=== PATIENT | female | born 1930 | race Caucasian/White ===

== ENCOUNTER 2016-12-07 20:00 | Inpatient (IN) | payer MEDICARE, OTHER ==
[~2016-12-07] VITALS: Ht 157.5 cm; Wt 49.1 kg
[2016-12-07 20:00] VITALS: BP 164/66; PULSE 67; RESP 18; TEMP 98.1; O2SAT 98
[2016-12-07] MEDS ORDERED: LORazepam 2 MG/ML VIAL - age > 65 yrs IM PRN (21:30)
[2016-12-07] MEDS ORDERED: MAGNESIUM HYDROXIDE SUSP 30 ML CUP PO PRN (21:30)
[2016-12-07] MEDS ORDERED: ALUMINUM/MAGNESIUM/SIMETH 30 ML CUP PO PRN (21:30)
[2016-12-07] MEDS ORDERED: LORazepam 0.5 MG TAB age > 65 yrs PO PRN (21:30)
[2016-12-07] MEDS ORDERED: ACETAMINOPHEN 325 MG TAB PO PRN (21:30)
[2016-12-08 05:12] VITALS: BP 145/64; PULSE 56; RESP 16; TEMP 97.2; O2SAT 97
[2016-12-08] MEDS ORDERED: cloNIDine HCL 0.1 MG TAB PO PRN (05:15)
[2016-12-08] MEDS: NICOTINE 21 MG/24 HR PATCH T-DERMAL SCH (06:19)
[2016-12-08] MEDS: REMOVE OLD NICOTINE PATCH T-DERMAL SCH (06:20)
[2016-12-08 08:14] LABS: ANION GAP 8 MEQ/L (5-15); BICARBONATE 26.8 MEQ/L (21.0-32.0); BLOOD UREA NITROGEN 20 MG/DL (7-18); CHLORIDE 106 MEQ/L (98-107); GLOMERULAR FILTRATION RATE 38 ML/MIN (>89); SODIUM (NA) 141 MEQ/L (136-145)
[2016-12-08 08:19] LABS: HDL CHOLESTEROL 78.3 MG/DL (40.0-60.0); LDL CHOLESTEROL 101 MG/DL (0-99)
[2016-12-08 09:50] VITALS: BP 153/68; PULSE 77
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
[2016-12-08] MEDS: amLODIPine BESYLATE 5 MG TAB PO SCH (12:06)
--- NOTE | 2016-12-08 12:19 | HHI.HP ---
Provisional Diagnosis Admission Date Dec 07, 2016 at 20:00 [place] I. 1. Adjustment disorder, unspecified 2. Impairment of cognitive function, severity unclear [place] II. Deferred [place] V. GAF is unclear at present Certification of Person's Competence To Provide Express and Informed Consent I have personally examined Melissa Bailey , a person being served at [facility] on, Dec 08, 2016 12:18. Express and informed consent means consent voluntarily given in writing, by a competent person, after sufficient explanation and disclosure of the subject matter involved to enable the person to make a knowing and willful decision without any element of force, fraud, deceit, duress, or other form of constraint or coercion. This person is 18 years of age or older, is not now known to be incompetent to consent to treatment with a guardian advocate, and does not have a health care surrogate or proxy currently making medical treatment decisions. I have found this person to be one of the following: [] Competent to provide express and informed consent, as defined above, for voluntary admission to this facility and is competent to provide express and informed consent for treatment. He/she has the consistent capacity to make well reasoned, willful, and knowing decisions concerning his or her medical or mental health treatment. The person fully and consistently understands the purpose of the admission for examination/placement and is fully capable of personally exercising all rights assured under [place] [] Incompetent to provide express and informed consent to voluntary admission, and this is incompetent to provide express and informed consent to treatment. The person must be transferred to involuntary status and a petition for a guardian advocate filed with the Circuit Court. [x] Refusing to provide express and informed consent to voluntary admission but is competent to provide express and informed consent for treatment. The person must be discharged or transferred to involuntary status. Form shall be completed within 24 hours of a person's arrival at the receiving facility and filed in the clinical record of each person: 1. Admitted on a voluntary basis 2. Permitted to provide express and informed consent to his/her own treatment 3. Allowed to transfer from involuntary to voluntary status 4. Prior to permitting a person to consent to his or her own treatment after having been previously found incompetent to consent to treatment. History of Present Illness Capacity: Has Capacity (to consent for medications) HPI Ms. Bailey is an 86 year-old female who reports no past psychiatric history who was brought in on an ex parte order initiated by her son. I have reviewed disorder in great detail. Allegations include cognitive impairment, neglecting health conditions, aggressive behavior toward family, poor insight. Reviewing our electronic medical record, I note this is patient's first presentation to [facility]. Patient seen and examined. Chart reviewed. Case discussed with nurse on the inpatient psychiatric unit as well as hospitalist integration consultant, Dr. Bonner. On my examination today, I find the patient to be well groomed and generally pleasant. She is quite upset to be in the hospital and does not believe that she needs to be here. She denies the allegations in the ex parte and insists that her son is under the sway of son's who has some personal antipathy toward the patient. She denies any issues with mood, nor can I elicit any depressive or hypomanic/manic symptoms. She denies any AVH, nor can I elicit any frankly delusional material. The patient denies subjective cognitive complaints and says that she remains independent for all of her basic and instrumental activities of daily living. The remainder of the psychiatric ROS is negative. Past psychiatric history: Patient denies any history of psychiatric diagnosis. She denies any history of inpatient or outpatient psychiatric treatment. She denies any history of suicide attempts. I do note that she is on some Aricept. Family history: Patient denies any family history of mental illness. Chemical dependency history: Patient denies any abuse of drugs or alcohol. Social history: Patient reports that she lives alone in her own condominium. She has been twice. She has a son and a granddaughter. She denies any or legal history. She denies any access to guns or firearms. She previously worked for [employer]. She has a Church. Review of Systems Other No reported headache, vision or hearing changes, chest pain, shortness of breath , bowel or bladder issues. No other physical complaints. Past Psych History Psychological trauma history No reported trauma history Violence risk - others (6 mos) Lower imminent risk. No homicidal ideation. No known history of violence. Denies access to guns or firearms. Violence risk - self (6 mos) Lower imminent risk. Denies suicidal ideation. Life-affirming gnosticist beliefs. Denies personal or family history of suicide attempts. Substance Abuse History Drugs/Alcohol past 12 months See above Past Family Social History Coded Allergies: No Known Allergies (Unverified , 12/07/16) Past Medical History See electronic medical record. Contrary to allegations an ex parte order, patient recognizes that she has a history of ovarian cancer and says that she has undergone 30 Chemotherapy treatments and continues to follow with the [facility] for cancer surveillance. She also endorses a history of hypertension. Current Medications Medications (Trade) Dose Ordered Sig/Hung Route Start Time Stop Time Status Last Admin (Ativan) 0.5 mg Q12H PRN PO 12/07/16 21:30 (Ativan Inj) 0.5 mg Q12H PRN IM 12/07/16 21:30 (Tylenol) 650 mg Q4H PRN PO 12/07/16 21:30 (Milk Of Magnesia Liq) 30 ml DAILY PRN PO 12/07/16 21:30 (Mag-Al Plus Susp Liq) 30 ml Q6H PRN PO 12/07/16 21:30 (Habitrol 21 Mg Patch.24 Hr) 1 patch DAILY T-DERMAL 12/08/16 09:00 Miscellaneous Information 1 HS T-DERMAL 12/08/16 21:00 (Catapres) 0.1 mg Q6H PRN PO 12/08/16 05:15 (Norvasc) 5 mg DAILY PO 12/08/16 09:15 12/08/16 12:06 (Lipitor) 20 mg DAILY PO 12/09/16 09:00 (Aricept) 5 mg DAILY PO 12/09/16 09:00 (Trandate) 200 mg Q12HR PO 12/08/16 21:00 Family History See above Social History See above Patient's Strengths (min. 2) Intelligent. Verbally fluent. Physical Exam Physical examination completed by hospitalist integration consultant. On my examination today, patient appears to be somewhat thin but not him a LOGISTICS VICE PRESIDENT. She is well developed. She is in no acute physical distress. Steady gait and station. Some titubation noted but no other abnormal motor movements noted. Labs and vital signs reviewed: Vital Signs Vital Signs Date Time Temp Pulse Resp B/P Pulse Ox O2 Delivery O2 Flow Rate FiO2 12/08/16 09:50 77 153/68 3/23/17 05:12 97.2 16 97 I/O 12/07/16 12/07/16 12/08/16 08:00 16:00 00:00 Intake Total 120 ml Balance 120 ml Lab Results Item Value Date Time Sodium Level 141 MEQ/L 12/08/16 07 Potassium Level 4.0 MEQ/L 12/08/16 07 Chloride Level 106 MEQ/L 12/08/16 07 Anion Gap 8 MEQ/L 12/08/16 07 Carbon Dioxide Level 26.8 MEQ/L 12/08/16 07 Blood Urea Nitrogen 20 MG/DL H 12/08/16 0706 Creatinine 1.31 MG/DL H 12/08/16 0706 Total Creatine Kinase 84 U/L 12/08/16 0706 Mental Status Examination Patient is casually dressed. She is well groomed. She is awake and alert and oriented to person, place and month and year. She gives the date as the . Her registration is 3 out of 3 but her recall is 0 out of 3. She is able to spell the word world forward but not backwards. She declines to perform serial sevens. She is able to name one of 2 items. She is able to repeat a phrase. She struggles with proverb interpretation. She is unable to name the current president but gives the immediately preceding president as Obama. Motoric exam as above. Speech is within normal limits for rate, tone and volume. Language and fund of knowledge seem average. Mood is fair, a little bit distressed by her circumstance, and affect is full and reactive. Thought process circumstantial. No loosening of associations. No kiana delusional material. Denies audiovisual hallucinations. Denies suicidal or homicidal ideation. Insight and judgment are presently unclear. Assessment & Plan Problem List: (1) Adjustment disorder ICD Code: F43.20 (2) Impairment of cognitive function ICD Code: R41.89 Assessment & Plan This is an 86-year-old female with psychiatric history as detailed above who presents under an ex parte order initiated by her son. On my examination today, patient exhibits some degree of cognitive impairment, although it is unclear to what extent this is impacting upon her level of function. The patient herself alleges that she is being railroaded by her son at the behest of her son's . I will plan to admit the patient to the inpatient unit for observation. Admit inpatient. Patient is declining to sign voluntary at this time. I will initiate a petition for involuntary hospitalization and consult for a second opinion. Patient retains capacity to consent for medications. Hospitalist consultation noted and appreciated. Continue Aricept. Low-dose Ativan as needed for anxiety. PT eval and falls precautions. OT eval for ADLs. Vitals every shift. Counselor to see and obtain collateral both from son and from independent sources as well. Disposition planning. ELOS: Pending outcome of observation. Discharge Planning Pending outcome of observation Request HC Surrog/Guard Advoc?: No (not at this time.) Problem Qualifiers (1) Adjustment disorder: Qualified Code: F43.20 - Adjustment disorder, unspecified type Dario Villanueva MD Dec 08, 2016 12:18
[2016-12-08 16:37] LABS: HEMOGLOBIN A1a 1.1 %; HEMOGLOBIN Ao 84.5 %; HEMOGLOBIN P3 4.2 %
[2016-12-08 18:00] VITALS: BP 137/79; PULSE 100; RESP 17; TEMP 98.2; O2SAT 98
[2016-12-08] MEDS: LABETALOL HCL 200 MG TAB PO SCH (21:00)
[2016-12-09 06:02] VITALS: BP 138/63; PULSE 62; RESP 16; TEMP 97.1
--- NOTE | 2016-12-09 08:22 | PD.CONS ---
Provisional Diagnosis Admission Date Dec 07, 2016 at 20:00 [place] I. 1. Adjustment disorder, unspecified 2. Impairment of cognitive function, severity unclear [place] II. Deferred [place] V. GAF is unclear at present History of Present Illness Service Psychiatry Consult Requested By Primary Care Physician Non-Staff HPI Ms. Bailey is an 86 year-old female who reports no past psychiatric history who was brought in on an ex parte order initiated by her son. I have reviewed disorder in great detail. Allegations include cognitive impairment, neglecting health conditions, aggressive behavior toward family, poor insight. Reviewing our electronic medical record, I note this is patient's first presentation to [facility]. Patient seen and examined. Chart reviewed. Case discussed with nurse on the inpatient psychiatric unit as well as hospitalist networks software consultant, Dr. Bonner. On my examination today, I find the patient to be well groomed and generally pleasant. She is quite upset to be in the hospital and does not believe that she needs to be here. She denies the allegations in the ex parte and insists that her son is under the sway of son's who has some personal antipathy toward the patient. She denies any issues with mood, nor can I elicit any depressive or hypomanic/manic symptoms. She denies any AVH, nor can I elicit any frankly delusional material. The patient denies subjective cognitive complaints and says that she remains independent for all of her basic and instrumental activities of daily living. The remainder of the psychiatric ROS is negative. Past psychiatric history: Patient denies any history of psychiatric diagnosis. She denies any history of inpatient or outpatient psychiatric treatment. She denies any history of suicide attempts. I do note that she is on some Aricept. Family history: Patient denies any family history of mental illness. Chemical dependency history: Patient denies any abuse of drugs or alcohol. Social history: Patient reports that she lives alone in her own condominium. She has been twice. She has a son and a granddaughter. She denies any or legal history. She denies any access to guns or firearms. She previously worked for [employer]. She has a Sabianism. 12/09/16 Above note dictated by Dr. Villanueva reviewed and agreed with. Patient is an 86 -year-old white female admitted to Dr. Villanueva service under the Bryant act. Patient seen by me with nurse Anila in the day room. Patient angry irritable showing no insight into her issues putting all blame and responsibility for this admission on her son. Patient is fairly well grounded is aware of her identity situation location. Dr. Villanueva #first opinion petition supporting [place] act. I agree. Patient meets criteria for involuntary hospitalization under the Bryant act. Thus I will cosign second opinion petition supporting [place] act Past Family Social History Coded Allergies: No Known Allergies (Unverified , 12/07/16) Current Medications Medications (Trade) Dose Ordered Sig/Hung Route Start Time Stop Time Status Last Admin (Ativan) 0.5 mg Q12H PRN PO 12/07/16 21:30 (Ativan Inj) 0.5 mg Q12H PRN IM 12/07/16 21:30 (Tylenol) 650 mg Q4H PRN PO 12/07/16 21:30 (Milk Of Magnesia Liq) 30 ml DAILY PRN PO 12/07/16 21:30 (Mag-Al Plus Susp Liq) 30 ml Q6H PRN PO 12/07/16 21:30 (Habitrol 21 Mg Patch.24 Hr) 1 patch DAILY T-DERMAL 12/08/16 09:00 Miscellaneous Information 1 HS T-DERMAL 12/08/16 21:00 (Catapres) 0.1 mg Q6H PRN PO 12/08/16 05:15 (Norvasc) 5 mg DAILY PO 12/08/16 09:15 12/08/16 12:06 (Lipitor) 20 mg DAILY PO 12/09/16 09:00 (Aricept) 5 mg DAILY PO 12/09/16 09:00 (Trandate) 200 mg Q12HR PO 12/08/16 21:00 12/08/16 21:00 Patient's Strengths (min. 2) Intelligent. Verbally fluent. Physical Exam Vital Signs Vital Signs Date Time Temp Pulse Resp B/P Pulse Ox O2 Delivery O2 Flow Rate FiO2 12/09/16 06:02 97.1 62 16 138/63 12/08/16 18:00 98 I/O 12/08/16 12/08/16 12/08/16 07:59 15:59 23:59 Intake Total 240 ml 480 ml 840 ml Balance 240 ml 480 ml 840 ml Mental Status Examination Speech: Pressured, Rapid, Tangential Orientation: Place, Situation Memory: Impaired (describe) Thought Process: Linear Thought Content: Unremarkable Hallucination Type: None Attention and Concentration: Other (fair) Suicidal Ideation: No (denies) Previous Suicide Attempts: No (deny) Homicidal Ideation: No (denies) Previous Homicide Attempts: No (denies) Insight: Poor Judgement: Poor Affect: Other (increase range and intensity) Mood: Angry, Anxious, Irritable Motor Activity: Normal gait Assessment & Plan Problem List: (1) Adjustment disorder ICD Code: F43.20 (2) Impairment of cognitive function ICD Code: R41.89 Assessment & Plan Estimated LOS: days Request HC Surrog/Guard Advoc?: No (not at this time.) Problem Qualifiers (1) Adjustment disorder: Qualified Code: F43.20 - Adjustment disorder, unspecified type Branden Lobo MD Dec 09, 2016 08:22
[2016-12-09] MEDS: NICOTINE 21 MG/24 HR PATCH T-DERMAL SCH (09:00)
[2016-12-09] MEDS: DONEPEZIL HCL 5 MG TAB PO SCH (09:00)
[2016-12-09 09:33] LABS: BICARBONATE 29.4 MEQ/L (21.0-32.0); MAGNESIUM 2.2 MG/DL (1.5-2.5); POTASSIUM 3.6 MEQ/L (3.5-5.1)
[2016-12-09 09:50] VITALS: BP 164/72; PULSE 73
[2016-12-09] MEDS: ATORVASTATIN 20 MG TAB PO SCH (09:52)
[2016-12-09] MEDS: amLODIPine BESYLATE 5 MG TAB PO SCH (09:52)
[2016-12-09] MEDS: LABETALOL HCL 200 MG TAB PO SCH ×2 (09:52→21:37)
--- NOTE | 2016-12-09 14:16 | HHI.PYPN ---
Subjective Remarks Patient seen in [place] with nurse Anila, patient continues marked perseveration related to her believes as to why she was [place] acted. She is no behavioral problem but there is a marked degree of anger and "feistiness" related to this. It appears her family did bring and power of commercial litigation attorney papers that are on the chart for perusal Review of Systems Except as stated in HPI: all other systems reviewed are Neg Objective Alert: Yes [place]: Person, Place, Date, Situation Mood: Agitated, Calm Affect: Restricted Memory Intact: Comment (poor poor) Hallucinations: Other (denies) Delusions: No Delusion Type: Other (somewhat vigilant towards family) Suicidal: Ideation (denies) Homicidal: Ideation (denies) Insight/Judgement Poor Labs Test 12/09/16 07:30 Sodium Level 139 MEQ/L Potassium Level 3.6 MEQ/L Chloride Level 102 MEQ/L Carbon Dioxide Level 29.4 MEQ/L Anion Gap 8 MEQ/L Blood Urea Nitrogen 26 MG/DL Creatinine 1.27 MG/DL Estimat Glomerular Filtration 40 ML/MIN Rate Random Glucose 95 MG/DL Calcium Level 9.8 MG/DL Magnesium Level 2.2 MG/DL Vitals/IOs Vital Signs Date Time Temp Pulse Resp B/P Pulse Ox O2 Delivery O2 Flow Rate FiO2 12/09/16 09:50 73 164/72 12/09/16 06:02 97.1 16 12/08/16 18:00 98 Intake and Output 12/08/16 12/08/16 12/09/16 08:00 16:00 00:00 Intake Total 240 ml 480 ml 840 ml Balance 240 ml 480 ml 840 ml Assessment & Plan Problem List: (1) Adjustment disorder ICD Code: F43.20 (2) Impairment of cognitive function ICD Code: R41.89 Assessment & Plan Estimated LOS: days patient continues quite "feisty" showing little insight into her issues or her problems. Though there orientation remains fairly good. For now continue treatment patient showing selective compliance with medication Justification for Cont. Inpt. At this time patient will decompensate and placed in a lower level of care Discharge Planning To be determined Request HC Surrog/Guard Advoc?: No (not at this time.) Problem Qualifiers (1) Adjustment disorder: Qualified Code: F43.20 - Adjustment disorder, unspecified type Branden Lobo MD Dec 09, 2016 14:16
--- NOTE | 2016-12-09 14:24 | HHI.PR ---
Blank section for building Patient appears medically stable we will sign off if patient's condition changes or further assistance is needed please reconsult. Creatinine has stabilized Recommend patient continue her home Aricept for dementia Recommend patient continue her home Norvasc 5 mg daily as well as labetalol 200 mg daily for hypertension Recommend patient continue her home Lipitor for hyperlipidemia Recommend patient not be restarted on hydrochlorothiazide and follow up with PCP after discharge (Paty Rinaldi) Paty Rinaldi Dec 09, 2016 14:24 Kathy Carmona MD Dec 09, 2016 15:40
[2016-12-09 18:00] VITALS: BP 106/49; PULSE 77; RESP 18; TEMP 97.4; O2SAT 97
[2016-12-09] MEDS: REMOVE OLD NICOTINE PATCH T-DERMAL SCH (21:00)
[2016-12-10 05:23] VITALS: BP 128/59; PULSE 67; RESP 16; TEMP 99; O2SAT 95
[2016-12-10] MEDS: amLODIPine BESYLATE 5 MG TAB PO SCH (08:45)
[2016-12-10] MEDS: DONEPEZIL HCL 5 MG TAB PO SCH (08:45)
[2016-12-10] MEDS: LABETALOL HCL 200 MG TAB PO SCH ×2 (08:45→21:31)
[2016-12-10] MEDS: NICOTINE 21 MG/24 HR PATCH T-DERMAL SCH (08:45)
[2016-12-10] MEDS: ATORVASTATIN 20 MG TAB PO SCH (08:45)
--- NOTE | 2016-12-10 14:08 | HHI.PYPN ---
Subjective Remarks Patient was seen and case discussed with nursing. Patient is pleasant and cooperative with exam. She is well dressed today. She is alert and oriented 2 , thinking the year as 2011, she cannot remember the current president. Describes her mood is "wonderful." He is eating well and sleeping well. She does have an anxious affect. She is compliant with her medications. Objective Alert: Yes [place]: Person, Place, Situation Mood: Calm Affect: Restricted, Blunted Memory Intact: Comment (poor) Hallucinations: Other (denies) Delusions: No Delusion Type: Other (none today) Suicidal: Ideation (denies) Homicidal: Ideation (denies) Insight/Judgement Poor Vitals/IOs Vital Signs Date Time Temp Pulse Resp B/P Pulse Ox O2 Delivery O2 Flow Rate FiO2 12/10/16 05:23 99.0 67 16 128/59 95 Intake and Output 12/09/16 12/09/16 12/10/16 08:00 16:00 00:00 Intake Total 480 ml 240 ml Balance 480 ml 240 ml Assessment & Plan Problem List: (1) Adjustment disorder ICD Code: F43.20 (2) Impairment of cognitive function ICD Code: R41.89 Assessment & Plan Continue current treatment plan Justification for Cont. Inpt. Patient will decompensate in a less restrictive setting Request HC Surrog/Guard Advoc?: No (not at this time.) Problem Qualifiers (1) Adjustment disorder: Qualified Code: F43.20 - Adjustment disorder, unspecified type Landry Dominguez DO Dec 10, 2016 14:08
[2016-12-10 18:44] VITALS: BP 154/76; PULSE 74; RESP 16; TEMP 98.2; O2SAT 100
[2016-12-10] MEDS: REMOVE OLD NICOTINE PATCH T-DERMAL SCH (21:00)
[2016-12-11 06:30] VITALS: BP 142/82; PULSE 69; RESP 16; TEMP 99.1; O2SAT 99
[2016-12-11] MEDS: DONEPEZIL HCL 5 MG TAB PO SCH (08:48)
[2016-12-11] MEDS: ATORVASTATIN 20 MG TAB PO SCH (08:48)
[2016-12-11] MEDS: LABETALOL HCL 200 MG TAB PO SCH ×2 (08:49→20:52)
[2016-12-11] MEDS: NICOTINE 21 MG/24 HR PATCH T-DERMAL SCH (08:49)
[2016-12-11] MEDS: amLODIPine BESYLATE 5 MG TAB PO SCH (08:49)
--- NOTE | 2016-12-11 11:44 | HHI.PYPN ---
Subjective Remarks Patient was seen and case discussed with nursing. Patient is sleeping and eating well. She remains alert and oriented 3. She took a shower. She refuses her area set but is very particular with her medications per nursing. Patient is argumentative that she is on the role cholesterol medication does not seem to understand her treatment. Denies auditory visual hallucinations. Behaving well on the unit Objective Alert: Yes [place]: Person, Place, Date Mood: Oppositional Affect: Blunted Memory Intact: Comment (poor) Hallucinations: Other (denies) Delusions: No Delusion Type: Other (none today) Suicidal: Ideation (denies) Homicidal: Ideation (denies) Insight/Judgement Poor Vitals/IOs Vital Signs Date Time Temp Pulse Resp B/P Pulse Ox O2 Delivery O2 Flow Rate FiO2 12/11/16 06:30 99.1 69 16 142/82 99 Intake and Output 12/10/16 12/10/16 12/11/16 08:00 16:00 00:00 Intake Total 240 ml 1200 ml 840 ml Balance 240 ml 1200 ml 840 ml Assessment & Plan Problem List: (1) Adjustment disorder ICD Code: F43.20 (2) Impairment of cognitive function ICD Code: R41.89 Assessment & Plan Continue current treatment plan Justification for Cont. Inpt. Patient will decompensate in a less restrictive setting Request HC Surrog/Guard Advoc?: No (not at this time.) Problem Qualifiers (1) Adjustment disorder: Qualified Code: F43.20 - Adjustment disorder, unspecified type Landry Dominguez DO Dec 11, 2016 11:44
[2016-12-11 18:59] VITALS: BP 121/58; PULSE 65; RESP 17; TEMP 98; O2SAT 97
[2016-12-11] MEDS: REMOVE OLD NICOTINE PATCH T-DERMAL SCH (21:00)
[2016-12-12 05:23] VITALS: BP 125/63; PULSE 62; RESP 15; TEMP 97.4; O2SAT 98
[2016-12-12] MEDS: NICOTINE 21 MG/24 HR PATCH T-DERMAL SCH (09:00)
[2016-12-12] MEDS: amLODIPine BESYLATE 5 MG TAB PO SCH (10:18)
[2016-12-12] MEDS: DONEPEZIL HCL 5 MG TAB PO SCH (10:18)
[2016-12-12] MEDS: ATORVASTATIN 20 MG TAB PO SCH (10:18)
[2016-12-12] MEDS: LABETALOL HCL 200 MG TAB PO SCH ×2 (10:18→21:00)
--- NOTE | 2016-12-12 13:41 | HHI.PYPN ---
Subjective Remarks Patient seen and examined with nurse. Chart reviewed. OT evaluation noted. Pbx Teacher narcisa noted. Case discussed with nursing staff who reports that the patient remains cognitively impaired but tends to minimize her psychiatric symptomatology. On my examination today, the patient is initially calm and pleasant. However, when I bring up the subject of her son, she becomes increasingly irritable and agitated, saying "he's the only reason I'm in here!" She believes that we are on a "ship" and says that as soon as she gets off she will be going home, which she presently says is located in [place]. Nursing staff tells me she has given several different home locations. No reported side effects from medications. Spoke with patient's son over the phone. He notes that he is looking into memory care [facility] closer to his home for pt. He reports patient had reversible- causes of dementia workup, including head imaging last Fall, which was unremarkable. He will bring these data in. We discuss findings under observation, and son agrees that patient's paranoia/irritability will be a barrier to any placement. I discuss with him in his capacity as HCS the risks and benefits of a trial of Haldol, including but not limited to EPS/TD and increased risk of in demented elderly; I have explained that use of Haldol in this context is off-label. Son is agreeable to a trial of this agent. Review of Systems ROS Limitations: Poor Historian Other No physical complaints today. Objective Alert: Yes [place]: Person Mood: Angry, Oppositional Affect: Restricted (dysphoric) Memory Intact: Comment (remains poor) Hallucinations: Other (No AVH) Delusions: Yes Delusion Type: Paranoid Suicidal: Ideation (No SI) Homicidal: Ideation (No HI) Insight/Judgement Poor Remarks TP a little circumstantial. No motor abnormalities noted. Grooming and hygiene fairly good. Labs Labs reviewed. Vitals/IOs Vital Signs Date Time Temp Pulse Resp B/P Pulse Ox O2 Delivery O2 Flow Rate FiO2 12/12/16 05:23 97.4 62 15 125/63 98 Intake and Output 12/11/16 12/11/16 12/12/16 08:00 16:00 00:00 Intake Total 600 ml 600 ml Balance 600 ml 600 ml Assessment & Plan Problem List: (1) Dementia Assessment & Plan: Provisional ICD Code: F03.90 Assessment & Plan Add low-dose Haldol 0.5mg BID for paranoia/irritability. Continue Aricept as ordered; could consider titrating this agent. Continue to monitor on the inpatient unit. Continue other medications and care as ordered. Justification for Cont. Inpt. Impairment in reality construction. Medication changes in process. High risk for decompensation in a less restrictive environment. Discharge Planning Pending outcome a [place] [facility]. Son is working on [facility] placement should the patient be retained. 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
[2016-12-12 18:00] VITALS: BP 124/57; PULSE 71; RESP 16; TEMP 98.1; O2SAT 97
[2016-12-12] MEDS: REMOVE OLD NICOTINE PATCH T-DERMAL SCH (21:00)
[2016-12-12] MEDS: HALOPERIDOL 0.5 MG TAB PO SCH (21:00)
[2016-12-12] MEDS ORDERED: LORazepam 0.5 MG TAB PO PRN (21:30)
[2016-12-12] MEDS ORDERED: LORazepam 2 MG/ML VIAL IM PRN (21:30)
[2016-12-13 06:00] VITALS: BP 129/61; PULSE 71; RESP 16; TEMP 96.7; O2SAT 96
[2016-12-13] MEDS: NICOTINE 21 MG/24 HR PATCH T-DERMAL SCH (09:00)
[2016-12-13] MEDS: amLODIPine BESYLATE 5 MG TAB PO SCH (09:27)
[2016-12-13] MEDS: LABETALOL HCL 200 MG TAB PO SCH ×2 (09:27→21:53)
[2016-12-13] MEDS: HALOPERIDOL 0.5 MG TAB PO SCH ×2 (09:27→21:53)
[2016-12-13] MEDS: MULTIVITAMIN TAB PO SCH (09:27)
[2016-12-13] MEDS: ATORVASTATIN 20 MG TAB PO SCH (09:28)
[2016-12-13] MEDS: DONEPEZIL HCL 5 MG TAB PO SCH (09:28)
--- NOTE | 2016-12-13 11:51 | HHI.PYPN ---
Subjective Remarks Patient seen and examined. Chart reviewed. Case discussed with nurse, counselor and recreation therapist in treatment team. Per nursing staff, patient is somewhat less angry but remains quite confused with only brief moments of clarity. Counselor informs me that patient's son is looking at assisted living facilities in [place]. Recreation therapist reports patient has not been attending group activities. On my examination today, the patient believes that she is in the hospital as part of a vacation set up by her travelers' aid worker. She says "I signed up to be on a tour. I was expecting to see things. I'm just observing here. I will be writing a note to my travelers' aid worker that they misrepresented this tour." Remains upset and paranoid about her son. Denies side effects from medications. Review of Systems ROS Limitations: Poor Historian Other No physical complaints today. Objective Alert: Yes [place]: Person, Place (hospital on a tour) Mood: Other (Calmer, less hostile) Affect: Blunted Memory Intact: Comment (Poor) Hallucinations: Other (No AVH) Delusions: Yes Delusion Type: Paranoid Suicidal: Ideation (No SI) Homicidal: Ideation (No HI) Insight/Judgement Poor Remarks No abnormal motor movements noted. Thought process circumstantial. Speech within normal limits for rate, tone and volume. Grooming and hygiene remain fair. Labs Labs reviewed. No new labs. Vitals/IOs Vital Signs Date Time Temp Pulse Resp B/P Pulse Ox O2 Delivery O2 Flow Rate FiO2 12/13/16 06:00 96.7 71 16 129/61 96 Intake and Output 12/12/16 12/12/16 12/13/16 08:00 16:00 00:00 Intake Total 240 ml 960 ml 720 ml Balance 240 ml 960 ml 720 ml Assessment & Plan Problem List: (1) Dementia ICD Code: F03.90 Assessment & Plan Continue Haldol 0.5 mg twice daily, although we could consider titrating this agent to target patient's residual paranoia in the next few days. I will go ahead and titrate her Aricept to 10 mg daily. Continue to monitor on the inpatient unit. Continue other medications and care as ordered. Justification for Cont. Inpt. Impairment in reality construction. High risk for decompensation in a less restrictive environment. Medication changes in process. Discharge Planning Pending outcome of [place]. Patient will likely require placement if retained. 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
[2016-12-13 18:00] VITALS: BP 131/59; PULSE 70; RESP 18; TEMP 98.2; O2SAT 97
[2016-12-13] MEDS: REMOVE OLD NICOTINE PATCH T-DERMAL SCH (21:00)
[2016-12-14 05:23] VITALS: BP 163/76; PULSE 85; RESP 17; TEMP 97.3; O2SAT 97
[2016-12-14] MEDS: NICOTINE 21 MG/24 HR PATCH T-DERMAL SCH (09:00)
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
[2016-12-14] MEDS: ATORVASTATIN 20 MG TAB PO SCH (11:05)
[2016-12-14] MEDS: DONEPEZIL HCL 5 MG TAB PO SCH (11:05)
[2016-12-14] MEDS: LABETALOL HCL 200 MG TAB PO SCH ×2 (11:05→21:28)
[2016-12-14] MEDS: amLODIPine BESYLATE 5 MG TAB PO SCH (11:06)
[2016-12-14] MEDS: MULTIVITAMIN TAB PO SCH (11:06)
[2016-12-14] MEDS: HALOPERIDOL 0.5 MG TAB PO SCH ×2 (13:38→17:39)
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
[2016-12-14 18:48] VITALS: BP 116/54; PULSE 69; RESP 16; TEMP 97.2; O2SAT 97
[2016-12-15 05:11] VITALS: BP 153/72; PULSE 60; RESP 16; TEMP 96.8; O2SAT 100
[2016-12-15] MEDS: ATORVASTATIN 20 MG TAB PO SCH (08:35)
[2016-12-15] MEDS: HALOPERIDOL 0.5 MG TAB PO SCH ×3 (08:35→16:50)
[2016-12-15] MEDS: MULTIVITAMIN TAB PO SCH (08:35)
[2016-12-15] MEDS: LABETALOL HCL 200 MG TAB PO SCH ×2 (08:36→20:57)
[2016-12-15] MEDS: amLODIPine BESYLATE 5 MG TAB PO SCH (08:36)
[2016-12-15] MEDS: DONEPEZIL HCL 5 MG TAB PO SCH (08:36)
--- NOTE | 2016-12-15 11:50 | HHI.PYPN ---
Subjective Remarks Patient seen and case discussed with nursing staff. Chart reviewed. For me today, patient insists that she can be discharged back to her condominium. She insists that she has no impairment in her ADLs. She articulates preference for 24 hour in home care, but the counselor has been in contact with patient's son who reports that they have tried this in the past and the patient refuses to let the statement services representative stay with her for any length of time. No reported side effects from medications, although nurse notes that patient had complained of some dry mouth. Review of Systems ROS Limitations: Poor Historian Except as stated in HPI: all other systems reviewed are Neg Objective Alert: Yes [place]: Person, Place (believes that she is in [place]) Mood: Anxious Affect: Blunted Memory Intact: Comment (Poor) Hallucinations: Other (no AVH) Delusions: No Delusion Type: Other (none elicited today) Suicidal: Ideation (no SI voiced) Homicidal: Ideation (no HI voiced) Insight/Judgement Poor Remarks No motor abnormalities noted Labs Labs reviewed. No new labs. Vitals/IOs Vital Signs Date Time Temp Pulse Resp B/P Pulse Ox O2 Delivery O2 Flow Rate FiO2 12/15/16 05:11 96.8 60 16 153/72 100 Intake and Output 12/14/16 12/14/16 12/15/16 08:00 16:00 00:00 Intake Total 120 ml 840 ml 340 ml Balance 120 ml 840 ml 340 ml Assessment & Plan Problem List: (1) Dementia ICD Code: F03.90 Assessment & Plan Continue Haldol and Aricept as ordered. Biotene when necessary for dry mouth. Continue to monitor on the inpatient unit. Continue other medications and care as ordered. Patient's case was presented [place] and the was placed in continuance for a period of 4 weeks. Justification for Cont. Inpt. High risk for decompensation in a less restrictive environment. Discharge Planning Placement. Counselors working with patient's son to identify facilities in [place]. 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
[2016-12-15 17:57] VITALS: BP 135/63; PULSE 77; RESP 16; TEMP 97; O2SAT 98
[2016-12-16 05:01] VITALS: BP 139/65; PULSE 66; RESP 18; TEMP 97.6; O2SAT 97
[2016-12-16] MEDS: HALOPERIDOL 0.5 MG TAB PO SCH ×3 (09:50→21:00)
[2016-12-16] MEDS: LABETALOL HCL 200 MG TAB PO SCH ×2 (09:50→20:39)
[2016-12-16] MEDS: DONEPEZIL HCL 5 MG TAB PO SCH (09:50)
[2016-12-16] MEDS: MULTIVITAMIN TAB PO SCH (09:50)
[2016-12-16] MEDS: amLODIPine BESYLATE 5 MG TAB PO SCH (09:50)
[2016-12-16] MEDS: ATORVASTATIN 20 MG TAB PO SCH (09:50)
--- NOTE | 2016-12-16 13:40 | HHI.PYPN ---
Subjective Remarks Patient seen and case discussed with nursing staff. Chart reviewed. Per nursing staff, patient has been fairly cooperative. On my examination today, the patient is discharged focused. She remains extremely paranoid about her son. She minimizes the extent of her cognitive and functional impairment. No evident side effects from medications. Review of Systems ROS Limitations: Poor Historian Except as stated in HPI: all other systems reviewed are Neg Objective Alert: Yes [place]: Person Mood: Calm Affect: Restricted (somewhat restricted and dysphoric) Memory Intact: Comment (Poor) Hallucinations: Other (no AVH) Delusions: Yes Delusion Type: Paranoid Suicidal: Ideation (no SI voiced) Homicidal: Ideation (no HI voiced) Insight/Judgement Poor Remarks No motor abnormalities noted. Grooming and hygiene fair. Labs Labs reviewed. No new labs. Vitals/IOs Vital Signs Date Time Temp Pulse Resp B/P Pulse Ox O2 Delivery O2 Flow Rate FiO2 12/16/16 05:01 97.6 66 18 139/65 97 Intake and Output 12/15/16 12/15/16 12/16/16 08:00 16:00 00:00 Intake Total 0 ml 600 ml 750 ml Balance 0 ml 600 ml 750 ml Assessment & Plan Problem List: (1) Dementia ICD Code: F03.90 Assessment & Plan Titrate Haldol to 0.5/0.5/0.75mg for paranoia. Continue Aricept as ordered. Continue other medications and care as ordered. Continue to monitor on the inpatient unit. Justification for Cont. Inpt. Impairment in reality construction. High risk for decompensation in a less restrictive environment. Discharge Planning Placement. Son has identified facilities in [place]. 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
[2016-12-16 17:39] VITALS: BP 134/65; PULSE 69; RESP 18; TEMP 98; O2SAT 98
[2016-12-16 19:14] VITALS: BP 134/65; PULSE 64; RESP 18; TEMP 98; O2SAT 98
[2016-12-17 06:14] VITALS: BP 148/67; PULSE 67; RESP 15; TEMP 97.4; O2SAT 96
[2016-12-17] MEDS: DONEPEZIL HCL 5 MG TAB PO SCH (09:53)
[2016-12-17] MEDS: HALOPERIDOL 0.5 MG TAB PO SCH ×3 (09:53→21:30)
[2016-12-17] MEDS: amLODIPine BESYLATE 5 MG TAB PO SCH (09:54)
[2016-12-17] MEDS: LABETALOL HCL 200 MG TAB PO SCH ×2 (09:54→21:30)
[2016-12-17] MEDS: MULTIVITAMIN TAB PO SCH (09:54)
[2016-12-17] MEDS: ATORVASTATIN 20 MG TAB PO SCH (09:54)
--- NOTE | 2016-12-17 14:13 | HHI.PYPN ---
Subjective Remarks Pt seen and discussed with staff. She remains confused and confabulates. She has been calmer today and fixated on delusions. Cooperative with care and no medication side effects. Review of Systems Psychiatric: COMPLAINS OF: Confusion, Delusions Objective Alert: Yes [place]: Person Mood: Calm Affect: Restricted (somewhat restricted and dysphoric) Memory Intact: Comment (Poor) Hallucinations: Other (no AVH) Delusions: Yes Delusion Type: Paranoid Suicidal: Ideation (no SI voiced) Homicidal: Ideation (no HI voiced) Insight/Judgement poor Vitals/IOs Vital Signs Date Time Temp Pulse Resp B/P Pulse Ox O2 Delivery O2 Flow Rate FiO2 12/17/16 06:14 97.4 67 15 148/67 96 Intake and Output 12/16/16 12/16/16 12/17/16 08:00 16:00 00:00 Intake Total 0 ml 1080 ml 1200 ml Balance 0 ml 1080 ml 1200 ml Assessment & Plan Problem List: (1) Dementia ICD Code: F03.90 Assessment & Plan Continue current tx plan. Estimated LOS: days Justification for Cont. Inpt. 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
[2016-12-17 21:05] VITALS: BP 168/68; PULSE 66; TEMP 97.2; O2SAT 98
[2016-12-18 05:12] VITALS: BP 148/67; PULSE 66; RESP 20; TEMP 97.2; O2SAT 100
[2016-12-18] MEDS: ATORVASTATIN 20 MG TAB PO SCH (09:24)
[2016-12-18] MEDS: DONEPEZIL HCL 5 MG TAB PO SCH (09:24)
[2016-12-18] MEDS: MULTIVITAMIN TAB PO SCH (09:24)
[2016-12-18] MEDS: amLODIPine BESYLATE 5 MG TAB PO SCH (09:24)
[2016-12-18] MEDS: HALOPERIDOL 0.5 MG TAB PO SCH ×3 (09:25→20:43)
[2016-12-18] MEDS: LABETALOL HCL 200 MG TAB PO SCH ×2 (10:38→20:43)
--- NOTE | 2016-12-18 15:46 | HHI.PYPN ---
Subjective Remarks Pt seen and discussed with staff. Pt has been more confused today and told staff that she needed to drive to [place] immediately. She was argumentative with night staff. Compliant with medications. No SI/HI. During interview she is pleasant and cooperative and states that she is "happy." Review of Systems Psychiatric: COMPLAINS OF: Confusion Objective Alert: Yes [place]: Person Mood: Calm Affect: Restricted Memory Intact: Comment (Poor) Hallucinations: Other (no AVH) Delusions: Yes Delusion Type: Paranoid Suicidal: Ideation (no SI voiced) Homicidal: Ideation (no HI voiced) Insight/Judgement poor Vitals/IOs Vital Signs Date Time Temp Pulse Resp B/P Pulse Ox O2 Delivery O2 Flow Rate FiO2 12/18/16 05:12 97.2 66 20 148/67 100 Intake and Output 12/17/16 12/17/16 12/18/16 08:00 16:00 00:00 Intake Total 360 ml 1080 ml 720 ml Balance 360 ml 1080 ml 720 ml Assessment & Plan Problem List: (1) Dementia ICD Code: F03.90 Assessment & Plan Continue current tx plan Estimated LOS: days Justification for Cont. Inpt. 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
[2016-12-18 18:49] LABS: BLOOD, URINE TRACE (NEG); COMMENT (UR) CULT NOT INDICATED; CULTURE IF INDICATED CULT NOT INDICATED; GLUCOSE,URINE 1000 mg/dL (NEG); HYALINE CAST, URINE 1 /lpf (RARE); KETONE, URINE NEG (NEG); MUCUS URINE FEW /lpf (OCC); NITRITE,URINE NEG (NEG); PH, URINE 5.5 (5.0-8.5); URINE COLOR YELLOW (YELLW/STRAW)
[2016-12-18 19:23] VITALS: BP 136/61; PULSE 68; RESP 18; TEMP 97.8; O2SAT 100
[2016-12-19 05:35] VITALS: BP 152/67; PULSE 73; RESP 18; TEMP 98.3; O2SAT 98
[2016-12-19] MEDS: LABETALOL HCL 200 MG TAB PO SCH ×2 (08:58→20:50)
[2016-12-19] MEDS: HALOPERIDOL 0.5 MG TAB PO SCH ×3 (08:58→20:50)
[2016-12-19] MEDS: DONEPEZIL HCL 5 MG TAB PO SCH (08:58)
[2016-12-19] MEDS: ATORVASTATIN 20 MG TAB PO SCH (08:58)
[2016-12-19] MEDS: MULTIVITAMIN TAB PO SCH (08:58)
[2016-12-19] MEDS: amLODIPine BESYLATE 5 MG TAB PO SCH (08:58)
--- NOTE | 2016-12-19 10:42 | HHI.PYPN ---
Subjective Remarks Patient seen and examined with nursing staff. Chart reviewed. Case discussed with nursing staff who reports patient was somewhat confused overnight but has been no behavioral problem. On my examination today, patient is resting in bed. She does not articulate any paranoid beliefs related to her son. No SI or HI voiced. She seems more accepting of the plan for placement. Counselor informs me that the patient's son has identified a facility in [place] and that all that remains to be done is to have the patient evaluated by a escrow representative from that facility on the unit. Review of Systems Except as stated in HPI: all other systems reviewed are Neg Objective Alert: Yes [place]: Person, Place (hospital) Mood: Calm Affect: Restricted Memory Intact: Comment (remains poor) Hallucinations: Other (none) Delusions: No Delusion Type: Other (no delusions elicited today) Suicidal: Ideation (no SI voiced) Homicidal: Ideation (no HI voiced) Insight/Judgement Poor Remarks No motor abnormalities noted Labs Test 12/18/16 18:00 Urine Color YELLOW Urine Turbidity CLEAR Urine pH 5.5 Urine Specific [place] 1.018 Urine Protein NEG mg/dL Urine Glucose (UA) 1000 mg/dL Urine Ketones NEG mg/dL Urine Occult Blood TRACE Urine Nitrite NEG Urine Bilirubin NEG Urine Urobilinogen LESS THAN 2.0 MG/DL Urine Leukocyte Esterase NEG Urine RBC 5 /hpf Urine WBC 1 /hpf Urine Hyaline Casts 1 /lpf Urine Mucus FEW /lpf Microscopic Urinalysis Comment CULT NOT INDICATED Labs reviewed. Vitals/IOs Vital Signs Date Time Temp Pulse Resp B/P Pulse Ox O2 Delivery O2 Flow Rate FiO2 12/19/16 05:35 98.3 73 18 152/67 98 Intake and Output 12/18/16 12/18/16 12/19/16 08:00 16:00 00:00 Intake Total 240 ml 1200 ml 720 ml Balance 240 ml 1200 ml 720 ml Assessment & Plan Problem List: (1) Dementia ICD Code: F03.90 Assessment & Plan Continue low-dose Haldol and Aricept as ordered. Continue to monitor on the inpatient unit. Continue other medications and care as ordered. Justification for Cont. Inpt. 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
[2016-12-19 16:32] VITALS: BP 153/65; PULSE 64; RESP 18; TEMP 97.4; O2SAT 98
[2016-12-20 06:12] VITALS: BP 139/61; PULSE 72; RESP 17; TEMP 98.2; O2SAT 98
[2016-12-20] MEDS: amLODIPine BESYLATE 5 MG TAB PO SCH (08:27)
[2016-12-20] MEDS: MULTIVITAMIN TAB PO SCH (08:27)
[2016-12-20] MEDS: HALOPERIDOL 0.5 MG TAB PO SCH ×3 (08:27→20:23)
[2016-12-20] MEDS: DONEPEZIL HCL 5 MG TAB PO SCH (08:27)
[2016-12-20] MEDS: ATORVASTATIN 20 MG TAB PO SCH (08:28)
[2016-12-20] MEDS: LABETALOL HCL 200 MG TAB PO SCH ×2 (08:28→20:23)
--- NOTE | 2016-12-20 14:29 | HHI.PYPN ---
Subjective Remarks Patient seen and examined with nurse. Chart reviewed. Case discussed in treatment team with nurse, counselor and occupational therapist. Per nursing staff, patient is cooperative and social on the unit. Counselor reports that facility patient's son selected will be coming out shortly to evaluate patient for discharge to that facility. On my examination today, the patient is calm and pleasant. She offers of no real complaints. She does not verbalize any paranoia today. No SI or HI. Denies side effects from medications. Review of Systems ROS Limitations: Poor Historian Except as stated in HPI: all other systems reviewed are Neg Objective Alert: Yes [place]: Person, Place Mood: Calm Affect: Appropriate Memory Intact: Comment (poor) Hallucinations: Other (no AVH) Delusions: No Delusion Type: Other (no delusions) Suicidal: Ideation (no SI voiced) Homicidal: Ideation (no HI voiced) Insight/Judgement Poor Remarks No motor abnormalities noted. Grooming and hygiene fair. Labs Labs reviewed. Vitals/IOs Vital Signs Date Time Temp Pulse Resp B/P Pulse Ox O2 Delivery O2 Flow Rate FiO2 12/20/16 06:12 98.2 72 17 139/61 98 Intake and Output 12/19/16 12/19/16 12/20/16 08:00 16:00 00:00 Intake Total 120 ml 840 ml Balance 120 ml 840 ml Assessment & Plan Problem List: (1) Dementia ICD Code: F03.90 Assessment & Plan Continue Haldol and Aricept as ordered. Continue to monitor on the inpatient unit. Continue other medications and care as ordered. Justification for Cont. Inpt. High risk for decompensation in a less restrictive environment. Discharge Planning Placement, hopefully within the next few days. 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
[2016-12-20 18:08] VITALS: BP 134/63; PULSE 60; RESP 17; TEMP 97; O2SAT 98
[2016-12-21 06:00] VITALS: BP 136/65; PULSE 66; RESP 16; TEMP 97; O2SAT 98
[2016-12-21] MEDS: amLODIPine BESYLATE 5 MG TAB PO SCH (08:14)
[2016-12-21] MEDS: DONEPEZIL HCL 5 MG TAB PO SCH (08:14)
[2016-12-21] MEDS: HALOPERIDOL 0.5 MG TAB PO SCH ×3 (08:14→20:45)
[2016-12-21] MEDS: ATORVASTATIN 20 MG TAB PO SCH (08:14)
[2016-12-21] MEDS: MULTIVITAMIN TAB PO SCH (08:14)
[2016-12-21] MEDS: LABETALOL HCL 200 MG TAB PO SCH ×2 (08:14→21:00)
--- NOTE | 2016-12-21 14:45 | HHI.PYPN ---
Subjective Remarks Patient seen and examined. Chart reviewed. Case discussed with nursing staff. Case also discussed with counselor. On my examination today, patient is calm and pleasant. She is somewhat exit seeking and I see her testing the door to the unit. She offers no particular complaints. She is at her recent cognitive baseline. No side effects from medications. Review of Systems ROS Limitations: Poor Historian Except as stated in HPI: all other systems reviewed are Neg Objective Alert: Yes [place]: Person, Place Mood: Calm Affect: Appropriate Memory Intact: Comment (remains impaired) Hallucinations: Other (no AVH) Delusions: No Delusion Type: Other (no delusions) Suicidal: Ideation (no SI) Homicidal: Ideation (no HI) Insight/Judgement Poor Remarks No motor abnormalities noted. Steady gait and station. Labs Labs reviewed Vitals/IOs Vital Signs Date Time Temp Pulse Resp B/P Pulse Ox O2 Delivery O2 Flow Rate FiO2 12/21/16 06:00 97.0 66 16 136/65 98 Intake and Output 12/20/16 12/20/16 12/21/16 08:00 16:00 00:00 Intake Total 360 ml 720 ml Balance 360 ml 720 ml Assessment & Plan Problem List: (1) Dementia ICD Code: F03.90 Assessment & Plan Continue Haldol and Aricept as ordered. Continue to monitor on the inpatient unit. Continue other medications and care as ordered. Justification for Cont. Inpt. High risk for decompensation in a less restrictive environment. Discharge Planning Counselor continues to work with facility in [place] on placement. Facility construction representative now says that they will send someone tomorrow to come evaluate the patient. I have asked the counselor to begin exploring other placement options as it seems like this facility is not terribly interested in coming to evaluate the patient for admission. 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
[2016-12-21 20:00] VITALS: BP 112/57; PULSE 62; RESP 16; TEMP 97.7; O2SAT 97
[2016-12-22 06:00] VITALS: BP 165/74; PULSE 67; RESP 18; TEMP 98.4; O2SAT 98
[2016-12-22] MEDS: DONEPEZIL HCL 5 MG TAB PO SCH (09:58)
[2016-12-22] MEDS: MULTIVITAMIN TAB PO SCH (09:58)
[2016-12-22] MEDS: amLODIPine BESYLATE 5 MG TAB PO SCH (09:59)
[2016-12-22] MEDS: ATORVASTATIN 20 MG TAB PO SCH (09:59)
[2016-12-22] MEDS: LABETALOL HCL 200 MG TAB PO SCH ×2 (09:59→21:00)
[2016-12-22] MEDS: HALOPERIDOL 0.5 MG TAB PO SCH ×3 (09:59→20:39)
--- NOTE | 2016-12-22 10:03 | HHI.PYPN ---
Subjective Remarks Patient seen and examined. Chart reviewed. Case discussed with nursing staff as well as with counselor. Per nursing staff, patient is pleasant and less angry/paranoid. On my examination today, the patient is confused as at recent baseline. She believes that she is on a vacation. She tells me that she has just gotten to her current destination, which she believes to be [place]. She says that her plan is to continue on into [place]. She denies side effects from medications. Review of Systems ROS Limitations: Poor Historian Except as stated in HPI: all other systems reviewed are Neg Objective Alert: Yes [place]: Person, Date Mood: Calm Affect: Appropriate Memory Intact: Comment (impaired) Hallucinations: Other (none) Delusions: No Delusion Type: Other (no delusions elicited) Suicidal: Ideation (no SI) Homicidal: Ideation (no HI) Insight/Judgement Poor Remarks No motor abnormalities noted. Labs Labs reviewed. No new labs. Vitals/IOs Vital Signs Date Time Temp Pulse Resp B/P Pulse Ox O2 Delivery O2 Flow Rate FiO2 12/22/16 06:00 98.4 67 18 165/74 98 Intake and Output 12/21/16 12/21/16 12/22/16 08:00 16:00 00:00 Intake Total 0 ml 1200 ml Balance 0 ml 1200 ml Assessment & Plan Problem List: (1) Dementia ICD Code: F03.90 Assessment & Plan Continue Haldol 0.5/0.5/0.75 mg daily. Continue Aricept 10 mg daily. Continue to monitor on the inpatient unit. Continue other medications and care as ordered. Justification for Cont. Inpt. High risk for decompensation in a less restrictive environment. Discharge Planning Plan is for placement, hopefully within the next week. 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
[2016-12-23 06:16] VITALS: BP 170/78; PULSE 60; RESP 16; TEMP 97.7
[2016-12-23] MEDS: LABETALOL HCL 200 MG TAB PO SCH ×2 (09:55→20:30)
[2016-12-23] MEDS: ATORVASTATIN 20 MG TAB PO SCH (09:55)
[2016-12-23] MEDS: HALOPERIDOL 0.5 MG TAB PO SCH ×3 (09:55→20:30)
[2016-12-23] MEDS: DONEPEZIL HCL 5 MG TAB PO SCH (09:55)
[2016-12-23] MEDS: MULTIVITAMIN TAB PO SCH (09:56)
[2016-12-23] MEDS: amLODIPine BESYLATE 5 MG TAB PO SCH (09:56)
--- NOTE | 2016-12-23 17:29 | HHI.PYPN ---
Subjective Remarks Patient is seen in [place] with nurse Sonny, patient continues confused irritable with little insight into her issues, compliant medications. For now continue treatment Review of Systems Except as stated in HPI: all other systems reviewed are Neg Objective Alert: Yes [place]: Person, Date Mood: Calm Affect: Appropriate Memory Intact: Comment (impaired) Hallucinations: Other (none) Delusions: No Delusion Type: Other (no delusions elicited) Suicidal: Ideation (no SI) Homicidal: Ideation (no HI) Insight/Judgment Very poor Vitals/IOs Vital Signs Date Time Temp Pulse Resp B/P Pulse Ox O2 Delivery O2 Flow Rate FiO2 12/23/16 06:16 97.7 60 16 170/78 12/22/16 06:00 98 Assessment & Plan Problem List: (1) Dementia ICD Code: F03.90 Assessment & Plan Estimated LOS: days patient continues confused demented, somewhat irritable at times needing redirection. For now continue treatment Justification for Cont. Inpt. 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
[2016-12-23 19:17] VITALS: BP 116/54; PULSE 63; RESP 16; TEMP 98.1; O2SAT 98
[2016-12-24 06:11] VITALS: BP 153/69; PULSE 68; RESP 18; TEMP 97.5; O2SAT 97
[2016-12-24] MEDS: ATORVASTATIN 20 MG TAB PO SCH (08:55)
[2016-12-24] MEDS: MULTIVITAMIN TAB PO SCH (08:56)
[2016-12-24] MEDS: LABETALOL HCL 200 MG TAB PO SCH ×2 (08:56→20:47)
[2016-12-24] MEDS: HALOPERIDOL 0.5 MG TAB PO SCH ×3 (08:56→20:47)
[2016-12-24] MEDS: amLODIPine BESYLATE 5 MG TAB PO SCH (08:57)
[2016-12-24] MEDS: DONEPEZIL HCL 5 MG TAB PO SCH (08:57)
--- NOTE | 2016-12-24 12:40 | HHI.PYPN ---
Subjective Remarks Patient was seen and case discussed with nursing. Patient is pleasant and cooperative with exam. She is dressed nicely today. Alert and oriented 2. Behaving well on the unit. Compliant with her medications. Denies suicidal ideations intent or plan. Blood pressure is mildly elevated Objective Alert: Yes [place]: Person, Place Mood: Calm Affect: Restricted Memory Intact: Comment (impaired) Hallucinations: Other (none) Delusions: No Delusion Type: Other (no delusions elicited) Suicidal: Ideation (no SI) Homicidal: Ideation (no HI) Insight/Judgment Fair Vitals/IOs Vital Signs Date Time Temp Pulse Resp B/P Pulse Ox O2 Delivery O2 Flow Rate FiO2 12/24/16 06:11 97.5 68 18 153/69 97 Intake and Output 12/23/16 12/23/16 12/24/16 08:00 16:00 00:00 Intake Total 0 ml 360 ml 720 ml Balance 0 ml 360 ml 720 ml Assessment & Plan Problem List: (1) Dementia ICD Code: F03.90 Assessment & Plan Vitals every 6 Justification for Cont. Inpt. 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
[2016-12-24 18:00] VITALS: BP 152/67; PULSE 65; TEMP 97.7; O2SAT 98
[2016-12-25] VITALS: BP 148/64; PULSE 66; RESP 18; TEMP 98
[2016-12-25 06:22] VITALS: BP 164/70; PULSE 63; RESP 16; TEMP 97; O2SAT 97
[2016-12-25] MEDS: HALOPERIDOL 0.5 MG TAB PO SCH ×3 (10:13→20:04)
[2016-12-25] MEDS: DONEPEZIL HCL 5 MG TAB PO SCH (10:13)
[2016-12-25] MEDS: ATORVASTATIN 20 MG TAB PO SCH (10:13)
[2016-12-25] MEDS: MULTIVITAMIN TAB PO SCH (10:13)
[2016-12-25] MEDS: LABETALOL HCL 200 MG TAB PO SCH ×2 (10:13→20:04)
[2016-12-25] MEDS: amLODIPine BESYLATE 5 MG TAB PO SCH (10:13)
--- NOTE | 2016-12-25 15:01 | HHI.PYPN ---
Subjective Remarks Patient was seen and case discussed with nursing. Patient remains medication compliant. Describes her mood is "fine." Denies any auditory visual hallucinations. Alert and oriented 2. Largely keeps to herself. Behaving well on the unit. Objective Alert: Yes [place]: Person, Place Mood: Calm Affect: Blunted Memory Intact: Comment (not tested) Hallucinations: Other (none) Delusions: No Delusion Type: Other (no delusions elicited) Suicidal: Ideation (no SI) Homicidal: Ideation (no HI) Insight/Judgment Fair Vitals/IOs Vital Signs Date Time Temp Pulse Resp B/P Pulse Ox O2 Delivery O2 Flow Rate FiO2 12/25/16 06:22 97.0 63 16 164/70 97 Intake and Output 12/24/16 12/24/16 12/25/16 08:00 16:00 00:00 Intake Total 960 ml 550 ml Balance 960 ml 550 ml Assessment & Plan Problem List: (1) Dementia ICD Code: F03.90 Assessment & Plan Continue current treatment plan Justification for Cont. Inpt. 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
[2016-12-25 20:32] VITALS: BP 112/57; PULSE 67; RESP 15; TEMP 98; O2SAT 97
[2016-12-26 06:34] VITALS: BP 137/63; PULSE 68; RESP 15; TEMP 99.4; O2SAT 97
[2016-12-26] MEDS: MULTIVITAMIN TAB PO SCH (09:09)
[2016-12-26] MEDS: amLODIPine BESYLATE 5 MG TAB PO SCH (09:09)
[2016-12-26] MEDS: HALOPERIDOL 0.5 MG TAB PO SCH ×3 (09:09→21:38)
[2016-12-26] MEDS: LABETALOL HCL 200 MG TAB PO SCH ×2 (09:09→21:38)
[2016-12-26] MEDS: DONEPEZIL HCL 5 MG TAB PO SCH (09:09)
[2016-12-26] MEDS: ATORVASTATIN 20 MG TAB PO SCH (09:09)
--- NOTE | 2016-12-26 09:22 | HHI.PYPN ---
Subjective Remarks Patient seen and examined. Chart reviewed. Case discussed with nursing staff. No behavioral problems noted. On my examination today, the patient is sitting in the day area. She is calm and pleasant but somewhat confused as is her recent baseline. No evidence of psychosis. Denies side effects from medications. No other complaints. Review of Systems ROS Limitations: Poor Historian Except as stated in HPI: all other systems reviewed are Neg Objective Alert: Yes [place]: Person, Place (she is unsure of location), Date Mood: Calm Affect: Blunted Memory Intact: Comment (impaired on clinical exam) Hallucinations: Other (no AVH) Delusions: No Delusion Type: Other (no delusions) Suicidal: Ideation (no SI) Homicidal: Ideation (no HI) Insight/Judgment Poor Remarks No motor abnormalities noted. Speech within normal limits for rate, tone and volume. Grooming and hygiene fair. Labs Labs reviewed. Vitals/IOs Vital Signs Date Time Temp Pulse Resp B/P Pulse Ox O2 Delivery O2 Flow Rate FiO2 12/26/16 06:34 99.4 68 15 137/63 97 Intake and Output 12/25/16 12/25/16 12/26/16 08:00 16:00 00:00 Intake Total 550 ml 960 ml 720 ml Balance 550 ml 960 ml 720 ml Assessment & Plan Problem List: (1) Dementia ICD Code: F03.90 Assessment & Plan Continue Haldol and Aricept as ordered. Continue to monitor on the inpatient unit. Continue other medications and care as ordered. Justification for Cont. Inpt. High risk for decompensation in a less restrictive environment. Discharge Planning Per counselor, patient will be able to be transferred to assisted living facility on Monday. 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
[2016-12-26] MEDS ORDERED: TUBERCULIN, PPD 5 UNITS/0.1 ML SYRINGE I-DERMAL ONE (12:45)
[2016-12-26 19:00] VITALS: BP 131/61; PULSE 60; RESP 18; TEMP 97.8
[2016-12-27 06:00] VITALS: BP 150/65; PULSE 69; RESP 16; TEMP 97.5; O2SAT 95
[2016-12-27] MEDS: HALOPERIDOL 0.5 MG TAB PO SCH ×3 (09:36→21:00)
[2016-12-27] MEDS: amLODIPine BESYLATE 5 MG TAB PO SCH (09:37)
[2016-12-27] MEDS: MULTIVITAMIN TAB PO SCH (09:37)
[2016-12-27] MEDS: DONEPEZIL HCL 5 MG TAB PO SCH (09:37)
[2016-12-27] MEDS: LABETALOL HCL 200 MG TAB PO SCH ×2 (09:37→21:00)
[2016-12-27] MEDS: ATORVASTATIN 20 MG TAB PO SCH (09:37)
--- NOTE | 2016-12-27 12:20 | HHI.PYPN ---
Subjective Remarks Patient seen and examined. Chart reviewed. Case discussed in treatment team with nurse, counselor and occupational therapist. Per nursing staff, patient has been no behavioral problem. Counselor informs me that [facility] will be able to accept the patient tomorrow. On my examination today, patient is sitting in the day area. She is calm and pleasant. She is eager for discharge tomorrow. No SI or HI voiced. No side effects from medications. Review of Systems ROS Limitations: Poor Historian Except as stated in HPI: all other systems reviewed are Neg Objective Alert: Yes [place]: Person, Date Mood: Calm Affect: Blunted (remains somewhat blunted) Memory Intact: Comment (impaired on clinical exam) Hallucinations: Other (no AVH) Delusions: No Delusion Type: Other (no delusional material) Suicidal: Ideation (no SI) Homicidal: Ideation (no HI) Insight/Judgment Poor Remarks No motor abnormalities noted Labs Labs reviewed. Vitals/IOs Vital Signs Date Time Temp Pulse Resp B/P Pulse Ox O2 Delivery O2 Flow Rate FiO2 12/27/16 06:00 97.5 69 16 150/65 95 Intake and Output 12/26/16 12/26/16 12/27/16 08:00 16:00 00:00 Intake Total 480 ml Balance 480 ml Assessment & Plan Problem List: (1) Dementia ICD Code: F03.90 Assessment & Plan Continue Haldol and Aricept as ordered. PPD will be able to be read tomorrow morning. Continue to monitor on an inpatient unit. Continue other medications and care as ordered. Justification for Cont. Inpt. Risk for decompensation. Final discharge planning. Discharge Planning Anticipate transfer to facility tomorrow morning. 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
[2016-12-27] MEDS: SKIN TEST RESULT SCH (13:00)
[2016-12-27 19:00] VITALS: BP 133/63; PULSE 75; RESP 17; TEMP 97.9
[2016-12-28 05:26] VITALS: BP 113/58; PULSE 62; RESP 20; TEMP 97.8
[2016-12-28] MEDS ORDERED: AMLO5 PO (08:04)
[2016-12-28] MEDS ORDERED: ATOR20TA15 PO (08:04)
[2016-12-28] MEDS ORDERED: HALO0.5T PO ×2 (08:04)
[2016-12-28] MEDS ORDERED: LABE200T2 PO (08:04)
[2016-12-28] MEDS ORDERED: THERTAB15 PO (08:04)
[2016-12-28] MEDS ORDERED: ARIC5TAB PO (08:04)
--- NOTE | 2016-12-28 08:04 | HHI.DS ---
Psychiatry Discharge Summary Inpatient Psychiatric care?: Yes Advance Directive: No Reason Not Provided: Due to Patient Condition Mental Health AdvanceDirective: No Health Care Proxy: No Admission Admission Date Dec 07, 2016 at 20:00 Admission Diagnosis: (1) Adjustment disorder ICD Code: F43.20 (2) Impairment of cognitive function ICD Code: R41.89 Brief History Ms. Bailey is an 86 year-old female who reports no past psychiatric history who was brought in on an ex parte order initiated by her son. I have reviewed disorder in great detail. Allegations include cognitive impairment, neglecting health conditions, aggressive behavior toward family, poor insight. Reviewing our electronic medical record, I note this is patient's first presentation to [facility]. Patient seen and examined. Chart reviewed. Case discussed with nurse on the inpatient psychiatric unit as well as hospitalist funeral pre need consultant, Dr. Bonner. On my examination today, I find the patient to be well groomed and generally pleasant. She is quite upset to be in the hospital and does not believe that she needs to be here. She denies the allegations in the ex parte and insists that her son is under the sway of son's who has some personal antipathy toward the patient. She denies any issues with mood, nor can I elicit any depressive or hypomanic/manic symptoms. She denies any AVH, nor can I elicit any frankly delusional material. The patient denies subjective cognitive complaints and says that she remains independent for all of her basic and instrumental activities of daily living. The remainder of the psychiatric ROS is negative. Past psychiatric history: Patient denies any history of psychiatric diagnosis. She denies any history of inpatient or outpatient psychiatric treatment. She denies any history of suicide attempts. I do note that she is on some Aricept. Family history: Patient denies any family history of mental illness. Chemical dependency history: Patient denies any abuse of drugs or alcohol. Social history: Patient reports that she lives alone in her own condominium. She has been twice. She has a son and a granddaughter. She denies any or legal history. She denies any access to guns or firearms. She previously worked for [employer]. She has a [employer]. 12/09/16 Above note dictated by Dr. Villanueva reviewed and agreed with. Patient is an 86 -year-old white female admitted to Dr. Villanueva service under the Bryant act. Patient seen by me with nurse Anila in the day room. Patient angry irritable showing no insight into her issues putting all blame and responsibility for this admission on her son. Patient is fairly well grounded is aware of her identity situation location. Dr. Villanueva #first opinion petition supporting Bryant act. I agree. Patient meets criteria for involuntary hospitalization under the Bryant act. Thus I will cosign second opinion petition supporting Bryant act Tobacco Use In Past 30 Days: No Tobacco Past 30 Days Alcohol Use: Monthly or Less Hospital Course Patient was admitted to a locked, inpatient psychiatric unit. Appropriate precautions were in place throughout patient's hospital stay. A general medical consultation was obtained. Patient was seen and examined daily on the unit by psychiatry and also visited by counselor. Medications were adjusted. Patient tolerated medications well without side effects. Patient had improvement in presenting psychiatric symptomatology during the course of her hospital stay. Her was no evidence of any suicidality or homicidality on the inpatient unit. Patient's behavior improved with the benefit of psychopharmacologic treatment. Counselor, in conjunction with patient's son, identified a facility to which the patient can be discharged. On the day of discharge: Patient seen and examined. Chart reviewed. Case discussed with nursing staff. No behavioral problems noted. On my examination today, the patient is calm and pleasant. She feels ready for discharge from the inpatient psychiatric unit. Mental status is at recent baseline. Denies any SI or HI. Denies any audiovisual hallucinations. No evidence of ongoing psychosis. No mood symptoms present. Patient denies side effects from medications. No physical complaints. Weighing the acute, chronic, and protective factors and based on the available evidence, I time analysis clerk to a reasonable degree of medical certainty that the patient is at low imminent risk of harm to self or others from mental illness and her level of function is adequate for planned level of outpatient care. The patient has maximized benefit from this inpatient psychiatric hospital stay and will be discharged today in stable condition with psychiatric follow-up as arranged by counselor. Patient is also to follow-up with primary care. Patient to return to the psychiatric emergency room for any concerning psychiatric symptoms. Results Blood Pressure 113 / 58 Vital Signs Date Time Temp Pulse Resp B/P Pulse Ox O2 Delivery O2 Flow Rate FiO2 12/28/16 05:26 97.8 62 20 113/58 411/17 06:00 95 Item Value Date Time Sodium Level 139 MEQ/L 12/09/16 0730 Potassium Level 3.6 MEQ/L 12/09/16 0730 Chloride Level 102 MEQ/L 12/09/16 0730 Carbon Dioxide Level 29.4 MEQ/L 12/09/16 0730 Blood Urea Nitrogen 26 MG/DL H 12/09/16 0730 Creatinine 1.27 MG/DL H 12/09/16 0730 Random Glucose 95 MG/DL 12/09/16 0730 Hemoglobin A1c 5.9 % 12/08/16 0706 Total Creatine Kinase 84 U/L 12/08/16 0706 Magnesium Level 2.2 MG/DL 12/09/16 0730 Summary of Procedures None done Imaging None done Pending results at discharge: No Medications # of Antipsychotic meds at D/C: 1 Approp Antipsych med options 1 - Minimum of three failed multiple trials of monotherapy. 2 - Documented plan to taper to monotherapy due to previous use of multiple meds OR cross-taper in progress at D/C. 3 - Documentation of augmentation of Clozapine. 4 - Justification other than those listed in allowable values 1-3, document here : Discharge Discharge Date: Dec 28, 2016 Discharge Diagnosis: (1) Dementia Diagnosis: Principal ICD Code: F03.90 GAF on discharge is 50 Mental Status Exam at Disch Patient is casually dressed. She is fairly well groomed and certainly maintaining basic hygiene. She is awake and alert and oriented to person. No evidence of delirium. No motoric abnormalities noted. No induration at PPD placement site. Speech is within normal limits for rate, tone and volume. Language and fund of knowledge are reduced for age. Mood is fair and affect is blunted. Thought process linear. No loosening of associations. No evident delusions. Denies audiovisual hallucinations. Denies suicidal or homicidal ideation. Insight and judgment are poor. Pt Condition on Discharge: Stable Discharge Disposition: [facility] Discharge Instructions Diet Instructions: Heart Healthy Diet Activities you can perform: Weight Bearing as [facility] Scheduled Appointment: as per counselor's notes New Medications: Amlodipine (Norvasc) 5 Mg Tab 5 MG PO DAILY Blood Pressure Management Days 15 Ref 1 TAB Atorvastatin (Atorvastatin) 20 Mg Tab 20 MG PO DAILY Cholesterol Management Days 15 Ref 1 TAB Donepezil (Aricept) 5 Mg Tab 10 MG PO DAILY Mental Health Days 15 Ref 1 TAB Haloperidol (Haloperidol) 0.5 Mg Tab 0.5 MG PO DAILY@09,13 Mental Health Days 15 Ref 1 TAB Haloperidol (Haloperidol) 0.5 Mg Tab 0.75 MG PO HS Mental Health Days 15 Ref 1 TAB Labetalol (Labetalol) 200 Mg Tab 200 MG PO Q12HR Blood Pressure Management Days 15 Ref 1 TAB Multiple Vitamin (Thera/Beta-Carotene) 1 Tab Tab 1 TAB PO DAILY Nutritional Supplement Days 15 Ref 1 TAB Discharge Time <= 30 minutes Discharge/Advance Care Plan Health Problems: (1) Dementia Goals to promote your health * To prevent worsening of your condition and complications * To maintain your health at the optimal level Directions to meet your goals Take your medications as prescribed Follow your dietary instruction Follow activity as directed Keep your appointments as scheduled Take your immunizations and boosters as scheduled If your symptoms worsen call your PCP, if no PCP go to Urgent Care Center or Emergency Room For 10/04 questions related to your inpatient stay or results of tests pending at discharge, please contact Dr. Dario Villanueva at Smoking is Dangerous to Your Health. 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
[2016-12-28] MEDS: ATORVASTATIN 20 MG TAB PO SCH (09:34)
[2016-12-28] MEDS: amLODIPine BESYLATE 5 MG TAB PO SCH (09:34)
[2016-12-28] MEDS: LABETALOL HCL 200 MG TAB PO SCH (09:34)
[2016-12-28] MEDS: HALOPERIDOL 0.5 MG TAB PO SCH (09:34)
[2016-12-28] MEDS: DONEPEZIL HCL 5 MG TAB PO SCH (09:34)
[2016-12-28] MEDS: MULTIVITAMIN TAB PO SCH (09:34)
[2016-12-28] MEDS: SKIN TEST RESULT SCH (09:35)
== END 2016-12-28 10:40 | DRG 882 ==
LOC: H250 20:00
PROVIDERS: ADMIT Psychiatry & Neurology Psychiatry; ATTEND Psychiatry & Neurology Psychiatry
DX: F43.20 Adjustment disorder, unspecified (principal); N17.9 Acute kidney failure, unspecified; G30.9 Alzheimer's disease, unspecified; F02.80 Dementia in other diseases classified elsewhere, unspecified severity, without behavioral disturbance, psychotic disturbance, mood disturbance, and anxiety; R41.89 Other symptoms and signs involving cognitive functions and awareness; E78.5 Hyperlipidemia, unspecified; Z85.43 Personal history of malignant neoplasm of ovary; I12.9 Hypertensive chronic kidney disease with stage 1 through stage 4 chronic kidney disease, or unspecified chronic kidney disease; N18.9 Chronic kidney disease, unspecified; Z92.21 Personal history of antineoplastic chemotherapy
CPT/HCPCS: 80048; 80061; 81001; 82550; 83036; 83735; J2060